=== PATIENT | female | born 1960 | race Caucasian/White ===

== ENCOUNTER → 2016-03-11 | Outpatient (CLI) | payer OTHER ==
[~2016-03-11] MED LIST: AMOX500C3 PO; AMT10 PO; CALC500C70 PO; CALC600C9 PO; CHOL1000 PO; CHOL100010 PO; CITA20TA9 PO; CYCL10TA6 PO; DICL1GEL28 TOP; FLUT0.15; LEVO75TA PO; LEVO88TA3 PO; MULT-506 PO; MULT-602 PO
== END | disposition home or self-care (01) ==
LOC: C.PAPS 08:12
PROVIDERS: ATTEND Obstetrics & Gynecology
DX: Z01.419 Encounter for gynecological examination (general) (routine) without abnormal findings (principal); N95.2 Postmenopausal atrophic vaginitis

== ENCOUNTER → 2016-05-25 | Outpatient (CLI) | payer OTHER | END | disposition home or self-care (01) | LOC: C.LABBFT 10:54 | PROVIDERS: ATTEND Family Medicine | DX: E03.9 Hypothyroidism, unspecified (principal); Z85.850 Personal history of malignant neoplasm of thyroid ==

== ENCOUNTER → 2016-07-10 | Outpatient (CLI) | payer OTHER | END | disposition home or self-care (01) | LOC: C.LABBFT 17:55 | PROVIDERS: ATTEND Nurse Practitioner Family | DX: E03.9 Hypothyroidism, unspecified (principal); Z11.59 Encounter for screening for other viral diseases ==

== ENCOUNTER 2016-08-16 21:05 | Emergency (ER) | payer OTHER ==
[~2016-08-16 21:05] MED LIST changes: -CALC600C9 PO; -CHOL1000 PO; -LEVO88TA3 PO; -MULT-602 PO
[2016-08-16 21:10] VITALS: TEMP 37; Ht 162.6 cm
[2016-08-16] MEDS ORDERED: PROMETHAZINE HCL INJ 25 MG/ML 1 ML VIAL IM STA (21:23)
[2016-08-16] MEDS ORDERED: MoRPHine SULFATE 10 MG/ML CARP/VIAL IM STA (21:23)
[2016-08-16] MEDS ORDERED: KETOROLAC TROMETHAMINE 60 MG/2 ML VIAL IM STA (21:23)
--- NOTE | 2016-08-16 21:24 | EMERGENCY ROOM VISIT NOTE ---
History Report prepared by Neftali: Jordan Watts Under the Supervision of: Dr. Charles Goodman D.O. First contact with patient: 21:12 Chief Complaint: HEADACHE Stated Complaint: SEVERE HEADACHE, VOMITING, DIZZY, COLD History of Present Illness The patient is a 56 year old female with a history of migraines who presents to the Emergency Room with complaints of a persistent frontal headache since approximately 1800 tonight. The pain is currently rated 10/10 in severity. The patient vomited twice prior to arrival. Her pain is consistent with past migraines, however she has not had one this severe in a long time. The current headache started after she found out that her aunt . The patient takes Amitriptyline, prescribed by her PCP. She has had imaging of her head in the past. The patient has a history of thyroid cancer. She is s/p partial hysterectomy. Source of History: patient Onset: approximately 1800 tonight Position: head Symptom Intensity: 10/10 Timing: other (persistent) Associated Symptoms: + vomiting Review of Systems See HPI for pertinent positives & negatives. A total of 10 systems reviewed and were otherwise negative. Past Medical & Surgical Medical Problems: (1) Normal cardiac stress test Family History FHx: atrial fibrillation Social History Smoking Status: Never Smoker Marital Status: Housing Status: lives with family Occupation Status: employed Current/Historical Medications Scheduled Calcium Carbonate-Vitamin D (Calcium/Vitamin D 600-200 mg-Unit), 1 CAP PO DAILY Cholecalciferol (Vitamin D3), 1,000 INTER.UNIT PO DAILY Citalopram Hydrobromide (Celexa), 20 MG PO DAILY Fluticasone Propionate (Nasal) (Flonase Allergy Relief), 1 SPRAYS NA BID Levothyroxine Sodium (Synthroid), 75 MCG PO UD Levothyroxine Sodium (Levothyroxine Sodium), 88 MCG PO UD Multiple Vitamins W/ Minerals (Womens 50+ Multi Vitamin), 1 TAB PO DAILY Scheduled PRN Amitriptyline HCl (Amitriptyline HCl), 10 MG PO DAILY PRN for Headache Allergies Coded Allergies: Erythromycin (Verified Allergy, Intermediate, Rash, 08/16/16) Mometasone (Verified Allergy, Intermediate, Jittery, 08/16/16) Triamcinolone (Verified Allergy, Intermediate, Jittery, 08/16/16) Sulfa Antibiotics (Verified Allergy, Unknown, rash, 5/19/16) Uncoded Allergies: LATEX (Allergy, Unknown, 07/02/04) Physical Exam Vital Signs Date Time Temp Pulse Resp B/P (MAP) Pulse Ox O2 Delivery O2 Flow Rate FiO2 08/16/16 22:51 76 16 127/72 95 08/16/16 21:10 37.0 74 18 151/85 98 Room Air Physical Exam GENERAL: Patient is awake, alert, very anxious and uncomfortable appearing. EYES: The conjunctivae are clear. The pupils are round and reactive. EARS, NOSE, MOUTH AND THROAT: The nose is without any evidence of any deformity. Mucous membranes are moist tongue is midline NECK: The neck is nontender and supple. RESPIRATORY: Normal respiratory effort is noted there is no evidence of wheezing rhonchi or rales CARDIOVASCULAR: Regular rate and rhythm noted there no murmurs rubs or gallops normal S1 normal S2 GASTROINTESTINAL: The abdomen is soft. Bowel sounds are present in all quadrants. Abdomen is nontender MUSCULOSKELETAL/EXTREMITIES: There is no evidence of gross deformity full range of motion is noted in the hips and shoulders SKIN: There is no obvious evidence of any rash. There are no petechiae, pallor or cyanosis noted. NEUROLOGIC: Patient is awake alert and oriented x3 strength is symmetric patellar reflexes are 2+ bilaterally Medical Decision & Procedures Medications Administered Medications (Trade) Dose Ordered Sig/Mago Route Start Time Stop Time Status Last Admin Dose Admin Morphine Sulfate (MoRPHine SULFATE INJ) 8 mg NOW STAT IM 08/16/16 21:23 08/16/16 21:24 DC 08/16/16 21:32 8 MG Promethazine HCl (Phenergan Inj) 25 mg NOW STAT IM 08/16/16 21:23 08/16/16 21:24 DC 08/16/16 21:32 25 MG Ketorolac Tromethamine (Toradol Inj) 60 mg NOW STAT IM 08/16/16 21:23 08/16/16 21:24 DC 08/16/16 21:33 60 MG Ondansetron HCl (ZOFRAN ODT 4MG Home Pack) 1 homepack STK-MED ONCE .ROUTE 08/16/16 22:44 08/16/16 22:45 DC 08/16/16 22:50 1 HOMEPACK ED Course 2117: The patient was evaluated in room B3b. A complete history and physical examination were performed. 2122: Toradol 60 mg IM, Phenergan 25 mg IM, Morphine Sulfate 8 mg IM. 2239: The patient is feeling much better. She is ready for discharge. Medical Decision Prior records/ancillary studies reviewed. Triage Nursing notes reviewed. The patient's history was concerning for headache. Differential diagnosis: Etiologies such as migraine headache, meningitis, sinusitis, CO exposure, ICH, SAH, infection, tumor, headache, sinus thrombosis, arterial dissection, as well as others were entertained. Medication Reconciliation: I attest that I have personally reviewed the patient' s current medications list. Blood pressure screening: Patient was found to have normal blood pressure on screening and does not require follow-up. The patient is a 56-year-old female who presented to the emergency department for an evaluation of headache. The patient has a history of chronic migraine headache in the past. The patient has been treated successfully in our emergency department before. I did review the patient's previous electronic medical records. The patient did not have any focal neurologic deficits. She did not have meningismus. The patient was treated with medication she is been treated with the past. On subsequent reevaluation she was feeling much better. She was encouraged to rest and avoid any strenuous activity. She was also encouraged to call her primary care physician in the morning to schedule a follow-up appointment. She was also encouraged to return to emergency apartment immediately if symptoms change worsen or the need arises. Impression Primary Impression: Headache Scribe Attestation The scribe's documentation has been prepared under my direction and personally reviewed by me in its entirety. I confirm that the note above accurately reflects all work, treatment, procedures, and medical decision making performed by me. Departure Information Dispostion Home / Self-Care Referrals Steven Parkinson M.D. (PCP) Forms HOME CARE DOCUMENTATION FORM, IMPORTANT VISIT INFORMATION, Work Instructions Patient Instructions Headaches Migraine and Tension, My [facility] Additional Instructions Continue all medications as prescribed. Rest and avoid any strenuous activity. Call your family in the morning to schedule a follow-up appointment. Problem Qualifiers Primary Impression: Headache Headache type: unspecified Headache chronicity pattern: episodic headache Intractability: not intractable Qualified Codes: R51 - Headache
[2016-08-16] MEDS ORDERED: CALC600C9 PO (22:12)
[2016-08-16] MEDS ORDERED: CHOL1000 PO (22:12)
[2016-08-16] MEDS ORDERED: MULT-602 PO (22:12)
[2016-08-16] MEDS ORDERED: LEVO88TA3 PO (22:12)
[2016-08-16] MEDS ORDERED: ONDANSETRON HOME PACK 4MG OD TAB ONE (22:44)
[2016-08-16 22:51] VITALS: BP 127/72; PULSE 76; O2SAT 95
[2016-08-16] MEDS ORDERED: NURSING VERBAL MED ORDER ONE (23:00)
[2016-08-16] MEDS ORDERED: ONDANSETRON HOME PACK 4MG OD TAB PO STA (23:06)
== END 2016-08-16 22:52 | disposition home or self-care (01) ==
LOC: C.EDB 21:06
DX: R51 Headache (principal); Z85.850 Personal history of malignant neoplasm of thyroid; Z82.49 Family history of ischemic heart disease and other diseases of the circulatory system; Z79.899 Other long term (current) drug therapy

== ENCOUNTER → 2016-10-12 | Outpatient (CLI) | payer OTHER ==
[~2016-10-12] MED LIST changes: -AMOX500C3 PO; -CALC500C70 PO; +CALC600C9 PO; +CHOL1000 PO; -CHOL100010 PO; -CYCL10TA6 PO; -DICL1GEL28 TOP; +LEVO88TA3 PO; -MULT-506 PO; +MULT-602 PO
== END | disposition home or self-care (01) ==
LOC: C.LABBFT 14:37
PROVIDERS: ATTEND Family Medicine
DX: E03.9 Hypothyroidism, unspecified (principal); Z85.850 Personal history of malignant neoplasm of thyroid

== ENCOUNTER → 2016-11-23 | Outpatient (CLI) | payer OTHER ==
--- NOTE | 2016-12-25 08:14 | CODING QUERY NO DIAGNOSIS ---
TREATMENT RENDERED WITHOUT A DIAGNOSIS To promote full compliance with coding requirements relating to patient care, physician participation is requested in all cases of cross cut saw operator uncertainty. Please assist us with providing a diagnosis/symptom for the test(s) below: A diagnosis/symptom was not documented on your Order. A valid diagnosis/symptom is required to bill all insurances. Please remember that we are unable to code a diagnosis of rule out, probable, possible, questionable, or suspected. Tests that require a diagnosis: DOS: 11/23/16 * TSH DIAGNOSIS: Provider Signature: Date: Thank you Candy Myrick [employer] Once completed, please kindly fax back to [phone] For questions please call [phone]
== END | disposition home or self-care (01) ==
LOC: C.LABBFT 14:43
PROVIDERS: ATTEND Family Medicine
DX: Z80.8 Family history of malignant neoplasm of other organs or systems (principal)

== ENCOUNTER → 2017-02-26 | Outpatient (CLI) | payer OTHER ==
--- NOTE | 2017-03-02 13:37 | MAMMOGRAPHY REPORT ---
BILATERAL DIGITAL SCREENING MAMMOGRAM TOMOSYNTHESIS WITH CAD: 02/26/2017 CLINICAL HISTORY: Routine screening. Patient has no complaints. TECHNIQUE: Breast tomosynthesis in addition to standard 2D mammography was performed. Current study was also evaluated with a Computer Aided Detection (CAD) system. COMPARISON: Comparison is made to exams dated: 02/21/2016 mammogram, 02/18/2015 mammogram, 4 mammogram, 12/12/2012 mammogram, 12/09/2011 mammogram, and 01/06/2010 mammogram - [facility]. BREAST COMPOSITION: The tissue of both breasts is heterogeneously dense, which may obscure small mas ses. FINDINGS: No suspicious masses, calcifications, or areas of architectural distortion are noted in ei ther breast. There has been no significant interval change compared to prior exams. IMPRESSION: ACR BI-RADS CATEGORY 1: NEGATIVE There is no mammographic evidence of malignancy. A 1 year screening mammogram is recommended. The pa tient will receive written notification of the results. Approximately 10% of breast cancers are not detected with mammography. A negative mammographic report should not delay biopsy if a clinically suggestive mass is present. Kelly Rodriguez M.D. ah/:02/26/2017 15:20:14 Gluer Machine Setup Operator: Yojana PHELPS(Sahra)(M), [facility] letter sent: Normal 1/2 BI-RADS Code: ACR BI-RADS Category 1: Negative
== END | disposition home or self-care (01) ==
LOC: C.MAMM 09:50
PROVIDERS: ATTEND Obstetrics & Gynecology
DX: Z12.31 Encounter for screening mammogram for malignant neoplasm of breast (principal)

== ENCOUNTER → 2017-04-23 | Outpatient (CLI) | payer OTHER ==
--- NOTE | 2017-04-23 15:55 | DIAGNOSTIC IMAGING REPORT ---
THYROID ULTRASONOGRAPHY CLINICAL HISTORY: HYPOTHYROIDISM history of thyroidectomy COMPARISON STUDY: 02/12/2014 FINDINGS: There are postsurgical changes of a total thyroidectomy. No thyroid bed masses are visualized. No pathologically enlarged lymph nodes are demonstrated. IMPRESSION: Surgically absent thyroid. No masses identified within the thyroid bed. Electronically signed by: Hi Rangel M.D. 04/23/2017 3:53 PM Dictated Date/Time: 04/23/2017 3:52 PM
== END | disposition home or self-care (01) ==
LOC: C.ULTR 15:30
PROVIDERS: ATTEND Internal Medicine Endocrinology, Diabetes & Metabolism
DX: E89.0 Postprocedural hypothyroidism (principal)

== ENCOUNTER → 2017-04-30 | Outpatient (CLI) | payer OTHER | END | disposition home or self-care (01) | LOC: C.LABBFT 14:47 | PROVIDERS: ATTEND Internal Medicine Endocrinology, Diabetes & Metabolism | DX: E89.0 Postprocedural hypothyroidism (principal) ==

== ENCOUNTER → 2017-07-02 | Outpatient (CLI) | payer OTHER ==
[2017-07-02 17:08] LABS: BASO % 0.3 %; BASO ABS # 0.02 K/uL (0-0.2); EOS % 1.2 %; EOS ABS # 0.09 K/uL (0-0.5); HEMATOCRIT 41.4 % (37-47); HEMOGLOBIN 14.1 g/dL (12.0-16.0); IG# 0.01 K/uL (0.00-0.02); LYMPH % 37.9 %; LYMPH ABS # 2.96 K/uL (1.2-3.4); MEAN CELL VOLUME 90.6 fL (80-100); MEAN CORPUSCULAR HEMOGLOBIN 30.9 pg (25-34); MEAN CORPUSCULAR HGB CONC 34.1 g/dl (32-36); MEAN PLATELET VOLUME 11.6 fL (7.4-10.4); MONO % 7.9 %; MONO ABS # 0.62 K/uL (0.11-0.59); NEUT % 52.6 %; NEUT ABS # 4.12 K/uL (1.4-6.5); PLATELET COUNT 261 K/uL (130-400); RED CELL DISTRIBUTION WIDTH CV 12.5 % (11.5-14.5); RED CELL DISTRIBUTION WIDTH SD 41.2 fL (36.4-46.3); WHITE BLOOD COUNT 7.82 K/uL (4.8-10.8)
[2017-07-02 17:19] LABS: ALT/SGPT 31 U/L (12-78); AST/SGOT 26 U/L (15-37); BLOOD UREA NITROGEN 9 mg/dl (7-18); CALCIUM 9.3 mg/dl (8.5-10.1); CARBON DIOXIDE 30 mmol/L (21-32); CREATININE 0.76 mg/dl (0.60-1.20); GLUCOSE 106 mg/dl (70-99); POTASSIUM 3.8 mmol/L (3.5-5.1); SODIUM 139 mmol/L (136-145)
[2017-07-02 17:24] LABS: ALKALINE PHOSPHATASE 122 U/L (45-117); TOTAL PROTEIN 7.2 gm/dl (6.4-8.2)
== END | disposition home or self-care (01) ==
LOC: C.LABBFT 15:27
PROVIDERS: ATTEND Internal Medicine Hematology & Oncology
DX: E83.19 Other disorders of iron metabolism (principal)

== ENCOUNTER → 2017-10-19 | Outpatient (CLI) | payer OTHER ==
[2017-10-19 17:26] LABS: BASO % 0.2 %; BASO ABS # 0.02 K/uL (0-0.2); EOS % 1.7 %; EOS ABS # 0.14 K/uL (0-0.5); HEMATOCRIT 40.9 % (37-47); IG# 0.01 K/uL (0.00-0.02); LYMPH ABS # 3.38 K/uL (1.2-3.4); MEAN CELL VOLUME 91.7 fL (80-100); MEAN CORPUSCULAR HEMOGLOBIN 31.4 pg (25-34); MEAN CORPUSCULAR HGB CONC 34.2 g/dl (32-36); MEAN PLATELET VOLUME 12.7 fL (7.4-10.4); MONO % 7.2 %; MONO ABS # 0.59 K/uL (0.11-0.59); NEUT % 49.8 %; NEUT ABS # 4.11 K/uL (1.4-6.5); PLATELET COUNT 256 K/uL (130-400); RED CELL DISTRIBUTION WIDTH CV 12.6 % (11.5-14.5); RED CELL DISTRIBUTION WIDTH SD 42.2 fL (36.4-46.3); WHITE BLOOD COUNT 8.25 K/uL (4.8-10.8)
[2017-10-19 17:42] LABS: ALBUMIN 3.8 gm/dl (3.4-5.0); ALKALINE PHOSPHATASE 122 U/L (45-117); ALT/SGPT 29 U/L (12-78); AST/SGOT 26 U/L (15-37); BLOOD UREA NITROGEN 7 mg/dl (7-18); CALCIUM 9.1 mg/dl (8.5-10.1); CARBON DIOXIDE 27 mmol/L (21-32); CREATININE 0.67 mg/dl (0.60-1.20); GLUCOSE 105 mg/dl (70-99); POTASSIUM 3.7 mmol/L (3.5-5.1); SODIUM 141 mmol/L (136-145); TOTAL PROTEIN 6.9 gm/dl (6.4-8.2)
== END | disposition home or self-care (01) ==
LOC: C.LABBFT 15:27
PROVIDERS: ATTEND Internal Medicine Hematology & Oncology
DX: E83.110 Hereditary hemochromatosis (principal)